=== PATIENT | male | born 1960 | race Caucasian/White ===

== ENCOUNTER → 2017-07-05 | Outpatient (CLI) | payer OTHER ==
--- NOTE | 2017-07-05 15:56 | ECHOCARDIOGRAM REPORT ---
*NOTICE TO RECEIVING LIBERTARIAN AGENCY This information is strictly Confidential and protected under [place] law. [place] law prohibits you from making any further disclosure of this information unless further disclosure is expressly permitted by the written consent of the person to whom it pertains or is authorized by law. A general authorization for the release of medical or other information is not sufficient for this purpose. Hospital accepts no responsibility if the information is made available to any other person, INCLUDING THE PATIENT. Interpretation Summary * Name: ARUNA LA Study Date: 07/05/2017 01:00 PM BP: 150/82 mmHg * Patient Location: [facility] HR: 77 * : 1960 (M/d/yyyy) Gender: Male Height: 70 in * Age: 57 yrs Ethnicity: CA Weight: 210 lb * Referring Physician: JOHNATHAN * Performed By: Estefani Gonsales RDCS * * Reason For Study: ABNORMAL EKG * BSA: 2.1 m2 * -- Conclusions -- * Normal LV chamber with mild concentric LVH. * Normal LV systolic function, EF 55-60%. * No segmental left ventricular wall motion abnormalities are noted. * Grade I diastolic dysfunction. * Aortic valve sclerosis mild, without significant aortic valvular stenosis. Procedure Details * A complete two-dimensional transthoracic echocardiogram was performed (2D, M-mode, Doppler and color flow Doppler). Left Ventricle * The left ventricle is normal in size. * There is mild concentric left ventricular hypertrophy. * Ejection Fraction = 55-60%. * Left ventricular systolic function is normal. * No segmental left ventricular wall motion abnormalities are noted. * The left ventricular wall motion is normal. Right Ventricle * The right ventricular cavity size is normal (basal dimension <4.2 cm in right ventricular apical 4-chamber view). * The right ventricular systolic function is normal as assessed by tricuspid annular plane systolic excursion (TAPSE) (normal >1.5 cm). Atria * The left atrial size is normal. * Right atrial size is normal. * No ASD detected; PFO is not assessed. Mitral Valve * The mitral valve is normal in structure and function. Tricuspid Valve * The tricuspid valve is normal in structure and function. Aortic Valve * The aortic valve is trileaflet. * Aortic valve sclerosis mild, without significant aortic valvular stenosis. * No hemodynamically significant valvular aortic stenosis. * There is no significant aortic regurgitation. Pulmonic Valve * The pulmonary valve is not well seen, but the Doppler examination is normal without significant regurgitation or stenosis. Great Vessels * The aortic root is normal size. Pericardium/Pleural * There is no pericardial effusion. Left Ventricular Diastolic Function * Grade I diastolic dysfunction, (abnormal relaxation pattern). MMode 2D Measurements and Calculations IVSd 1.4 cm IVSs 1.9 cm LVIDd 4.6 cm LVIDs 3.2 cm LVPWd 0.90 cm LVPWs 1.5 cm IVS/LVPW 1.6 FS 29.0 % EDV(Teich) 95.1 ml ESV(Teich) 42.0 ml EF(Teich) 55.9 % EDV(cubed) 94.5 ml ESV(cubed) 33.7 ml EF(cubed) 64.3 % % IVS thick 31.1 % % LVPW thick 70.2 % LV mass(C)d 194.4 grams LV mass(C)dI 91.2 grams/m\S\2 LV mass(C)s 216.9 grams LV mass(C)sI 101.8 grams/m\S\2 SV(Teich) 53.1 ml SI(Teich) 24.9 ml/m\S\2 SV(cubed) 60.7 ml SI(cubed) 28.5 ml/m\S\2 Ao root diam 3.3 cm Ao root area 8.4 cm\S\2 LA dimension 2.9 cm LA/Ao 0.90 LVAd ap4 26.3 cm\S\2 LVLd ap4 8.8 cm EDV(MOD-sp4) 63.9 ml EDV(sp4-el) 66.6 ml LVAs ap4 16.1 cm\S\2 LVLs ap4 7.5 cm ESV(MOD-sp4) 30.6 ml ESV(sp4-el) 29.4 ml EF(MOD-sp4) 52.1 % EF(sp4-el) 55.8 % LVAd ap2 28.4 cm\S\2 LVLd ap2 9.3 cm EDV(MOD-sp2) 72.1 ml EDV(sp2-el) 73.9 ml LVAs ap2 18.7 cm\S\2 LVLs ap2 8.0 cm ESV(MOD-sp2) 36.6 ml ESV(sp2-el) 36.8 ml EF(MOD-sp2) 49.3 % EF(sp2-el) 50.2 % LVLd %diff 5.2 % EDV(MOD-bp) 69.6 ml LVLs %diff 7.2 % ESV(MOD-bp) 34.6 ml EF(MOD-bp) 50.2 % SV(MOD-sp4) 33.3 ml SI(MOD-sp4) 15.6 ml/m\S\2 SV(MOD-sp2) 35.5 ml SI(MOD-sp2) 16.7 ml/m\S\2 SV(MOD-bp) 35.0 ml SI(MOD-bp) 16.4 ml/m\S\2 SV(sp4-el) 37.2 ml SI(sp4-el) 17.4 ml/m\S\2 SV(sp2-el) 37.1 ml SI(sp2-el) 17.4 ml/m\S\2 Doppler Measurements and Calculations MV E max romy 62.6 cm/sec MV A max romy 60.6 cm/sec MV E/A 1.0 MV dec time 0.20 sec Ao V2 max 93.9 cm/sec Ao max PG 3.5 mmHg Ao max PG (full) 0.30 mmHg LV V1 max PG 3.2 mmHg LV V1 max 89.7 cm/sec
== END | disposition home or self-care (01) ==
LOC: C.CPL 12:27
PROVIDERS: ATTEND Internal Medicine Cardiovascular Disease
DX: Z01.810 Encounter for preprocedural cardiovascular examination (principal); R94.31 Abnormal electrocardiogram [ECG] [EKG]